=== PATIENT | male | born 1975 | race Caucasian/White ===

== ENCOUNTER 2022-02-22 15:27 | Outpatient (CLI) | payer OTHER | END 2022-02-22 15:34 | disposition home or self-care (01) | LOC: LAB 15:27 | PROVIDERS: ATTEND Urology | DX: R97.20 Elevated prostate specific antigen [PSA] (principal) ==

== ENCOUNTER 2022-03-16 07:50 | Outpatient (CLI) | payer OTHER | END 2022-03-16 07:52 | disposition home or self-care (01) | LOC: SONOGRAMA 07:50 | PROVIDERS: ATTEND Urology | DX: R97.20 Elevated prostate specific antigen [PSA] (principal); C61 Malignant neoplasm of prostate ==